=== PATIENT | male | born 1990 | race African-American/Black ===

== ENCOUNTER 2023-07-26 23:45 | Emergency (ER) | payer OTHER ==
[2023-07-26 23:51] VITALS: BMI 35.5
[2023-07-27 00:01] VITALS: BP 132/77; PULSE 110; RESP 18; TEMP 100.8
[2023-07-27] MEDS ORDERED: AZITHROMYCIN 500 MG TABLET ONE (00:18)
[2023-07-27] MEDS: AZITHROMYCIN 500 MG TABLET PO ONE (00:19)
== END 2023-07-27 00:21 | disposition home or self-care (01) ==
LOC: EDBD → FER 23:45
DX: R05.9 Cough, unspecified (principal); R06.02 Shortness of breath; R50.9 Fever, unspecified
CPT/HCPCS: 99283-25